=== PATIENT | male | born 1945 | race Caucasian/White ===

== ENCOUNTER → 2019-07-05 | Outpatient (CLI) | payer MEDICARE ==
--- NOTE | 2019-07-09 09:01 | MR ---
EXAMINATION TYPE: MR Prostate wo/w con DATE OF EXAM: 07/05/2019 COMPARISON: None IMAGE QUALITY: Satisfactory. INDICATION: Prostate cancer PSA: Not available Recent Biopsy and Date: 07/11/2018 Pathology Report (If Applicable): Prostate biopsy dated 07/11/2018 demonstrating a single positive cor e biopsy of the left lateral mid prostate gland demonstrating Marlette 3+3 (total 6) involving 1 core (approximately 10% of tissue measuring 1 mm in length). TECHNIQUE: Examination was performed using a 3T MRI without an endorectal coil. Multiparametric imaging was perf ormed with T2 mutliplanar sequences, axial diffusion weighted imaging and dynamic contrast enhanced i maging, utilizing 10 mL intravenous Gadavist gadolinium contrast. FINDINGS: There is no clinically significant cancer identified. PROSTATE VOLUME: 5.6 x 5.4 x 5.8 cm Vol= 91.8 cc Site 1: Assessment Category: 3 Size: 0.5 centimeters Location(s): Mid gland, medial aspect of the posterior lateral segment of the peripheral zone on the left NVB invasion: No Epididymal involvement: No Site 2: Assessment Category: 3 Size: 0.8 x 0.8 x 0.8 centimeters Location(s): Mid gland, lateral aspect of the posterior lateral segment of the peripheral zone on the right NVB invasion: No Epididymal involvement: No Wedge-shaped areas of hypoattenuation on T2-weighted imaging within the posterior medial mid gland on the right and left and posterior lateral right mid gland have no suspicious DWI/ADC characteristics and are typically related to fibrosis or prior prostatitis. Well-circumscribed heterogenous encapsula danish changes of the central zone are typically on the basis of benign prostatic hyperplasia, overall a ppearing moderate. Seminal vesicles appear unremarkable. Numerous sigmoid diverticula are seen. Osseous bone marrow sign al appears within normal limits. No suspicious adenopathy demonstrated within the pelvis. Urinary pooja dder displays reticulation, possibly from incomplete distention or sequela of the urinary bladder out let obstruction. IMPRESSION: PI-RADS 3 (intermediate, the presence of clinically significant cancer is equivocal) of the bilateral mid gland posterior lateral peripheral zones with abnormal foci on the left measuring 5 mm and on th e right measuring 8 mm. The left-sided nodule may correspond to the previously biopsied known prostat e carcinoma however the right nodule has no biopsy-proven malignant correlate on the provided patholo gy report. Directed biopsy of the right lateral peripheral zone should be considered. Highest Assessment Category: 3 False negative rates for MRI range from 5-20% depending on risk profile. Assessment Categories: 1 ? Very low (clinically significant cancer is highly unlikely to be present) 2 ? Low (clinically significant cancer is unlikely to be present) 3 ? Intermediate (the presence of clinically significant cancer is equivocal) 4 ? High (clinically significant cancer is likely to be present) 5 ? Very high (clinically significant cancer is highly likely to be present) Locations: PZ = peripheral zone; TZ = transition zone CZ=central zone; AFS = anterior fibromuscular stroma a=anterior half (i.e. PZa=anterior half of peripheral zone); pm= posterior medial (i.e PZpm) pl = postero-lateral (i.e. PZpl); p = posterior half (i.e. TZp) ; a = anterior half (i.e TZa or P Za) Other: N=no or no; E= equivocal; Y=yes EPE = extraprostatic extension NVB = neurovascular bundle NA = not applicable/not available
== END | disposition home or self-care (01) ==
LOC: RADMRIMAIN 09:02
PROVIDERS: ATTEND Urology
DX: C61 Malignant neoplasm of prostate (principal)
CPT/HCPCS: 72197; A9585

== ENCOUNTER → 2023-11-02 | Outpatient (CLI) | payer MEDICARE ==
--- NOTE | 2023-11-02 11:16 | MR ---
EXAMINATION TYPE: MR Prostate wo/w con DATE OF EXAM: 11/02/2023 10:02 AM COMPARISON: None. CLINICAL INDICATION:Male, 78 years old with history of [id number] PSA. TECHNIQUE: Multi-planar, multi-sequence imaging of the pelvis is performed prior to and following the uncomplicated administration of bolus intravenous gadolinium. CONTRAST: 10 Gadavist Interpretive Criteria: PI-RADS v2.1 SERUM PSA: 6.7 on November 2022. 6.4 on May 2023. SURGICAL PATHOLOGY: No data available. FINDINGS: Prostatic dimensions: 6.5 x 6.7 x 5.7 cm cm. Ellipsoid Volume:129.98 (PSA density=0.05 ng/mL/mL) CENTRAL GLAND (Central and Transition Zones/CZ+TZ): Multiple bilateral, heterogenous appearing hypertrophic stromal nodules, without suspicious lesion. M edian lobe hypertrophy with protrusion into the base of the bladder. (PI-RADS 2) PERIPHERAL ZONE (PZ): Bilateral linear, indistinct wedgelike areas of low ADC, and low T2 signal, No evidence of masslike a bnormality, or localized perfusional hypervascularity, to further suggest a focus of clinically signi ficant prostate cancer. (PI-RADS 2) SEMINAL VESICLES (SV): Symmetric and unremarkable. PERIPROSTATIC TISSUES: Unremarkable. LYMPH NODES: No enlarged pelvic lymph node. REMAINING PELVIS: Bladder wall is within normal limits given distention. No abnormal free or organized intrapelvic fluid collection. No pathologic bowel dilation or mural thickening. Colonic diverticula are present. Bilateral fat containing inguinal hernias. OSSEOUS STRUCTURES: No suspicious osseous abnormality. IMPRESSION: 1. No specific features for high-risk prostate cancer. Maximum PI-RADS score: 2. 2. Substantial BPH, estimated gland volume 129.98 mL.
== END | disposition home or self-care (01) ==
LOC: RADMRIMAIN 08:53
PROVIDERS: ATTEND Urology
DX: C61 Malignant neoplasm of prostate (principal); N40.0 Benign prostatic hyperplasia without lower urinary tract symptoms; R97.20 Elevated prostate specific antigen [PSA]
CPT/HCPCS: 72197; A9585

== ENCOUNTER 2025-02-18 04:11 | Emergency (ER) | payer MEDICARE ==
[2025-02-18 04:22] VITALS: TEMP 97.3
--- NOTE | 2025-02-18 05:05 | ED ---
Male Urogenital HPI - General Source: patient Mode of arrival: ambulatory Limitations: no limitations <Vikki Hernandez - Last Filed: 02/18/25 07:34> <Annalee Pineda - Last Filed: 02/18/25 18:59> - General Chief complaint: Urogenital Stated complaint: Blood in Urine Time Seen by Provider: 02/18/25 04:26 - History of Present Illness Initial comments: 79-year-old male with past medical history significant for BPH and prostate cancer, follows with Dr. Berrios. Patient reports that he had blood in his urine 1 week ago. Does endorse suprapubic abdominal pain and bloating. Does endorse recent travel with lots of walking. Reports he last urinated at 7 PM yesterday. Patient reports he does take a baby aspirin but no blood thinners. Denies any history of kidney stones. Denies any history of heart failure or lower extremity edema. He denies any fevers, chills, nausea, vomiting, diarrhea. (Vikki Hernandez) - Related Data Previous Rx's Medication Instructions Recorded Tamsulosin [Flomax] 0.4 mg PO DAILY 14 Days #14 cap 02/18/25 Allergies Allergy/AdvReac Type Severity Reaction Status Date / Time Penicillins Allergy Swelling Verified 02/18/25 11:40 Review of Systems ROS Other: All systems not noted in ROS Statement are negative. Constitutional: Denies: fever, chills Respiratory: Denies: cough, dyspnea Cardiovascular: Denies: chest pain, palpitations Endocrine: Denies: fatigue Gastrointestinal: Reports: abdominal pain Genitourinary: Reports: hematuria. Denies: urgency, dysuria Musculoskeletal: Reports: back pain Skin: Denies: rash, lesions Neurological: Denies: headache, weakness <Vikki Hernandez - Last Filed: 02/18/25 07:34> ROS Other: All systems not noted in ROS Statement are negative. <Annalee Pineda - Last Filed: 02/18/25 18:59> ROS Statement: Those systems with pertinent positive or pertinent negative responses have been documented in the HPI. Past Medical History Past Medical History: Hyperlipidemia, Hypertension History of Any Multi-Drug Resistant Organisms: None Reported Past Surgical History: Coronary Bypass/CABG, Hernia Repair Past Psychological History: No Psychological Hx Reported Smoking Status: Never smoker Past Alcohol Use History: Occasional Past Drug Use History: None Reported <Vikki Hernandez - Last Filed: 02/18/25 07:34> General Exam Limitations: no limitations General appearance: alert, in no apparent distress Respiratory exam: Present: normal lung sounds bilaterally. Absent: respiratory distress, wheezes Cardiovascular Exam: Present: regular rate, normal rhythm, normal heart sounds GI/Abdominal exam: Present: soft, tenderness (Suprapubic). Absent: guarding, rebound, hernia Back exam: Present: tenderness Neurological exam: Present: alert, oriented X3 Psychiatric exam: Present: normal affect, normal mood Skin exam: Present: warm, dry, intact <Vikki Hernandez - Last Filed: 02/18/25 07:34> Course Vital Signs 02/18/25 02/18/25 02/18/25 04:15 06:46 07:49 Temperature 97.3 F L Pulse Rate 77 72 80 Respiratory 17 18 18 Rate Blood Pressure 180/80 125/85 122/76 O2 Sat by Pulse 99 95 98 Oximetry Medical Decision Making - Lab Data Result diagrams: 02/18/25 05:16 02/18/25 05:16 <Vikki Hernandez - Last Filed: 02/18/25 07:34> - Lab Data Result diagrams: 02/18/25 05:16 02/18/25 05:16 <Annalee Pineda - Last Filed: 02/18/25 18:59> - Medical Decision Making Was pt. sent in by a medical professional or institution (, PA, KICKBOXING INSTRUCTOR, urgent care, hospital, or senior care...) When possible be specific @ -No Did you speak to anyone other than the patient for history (EMS, parent, family, police, friend...)? What history was obtained from this source @ -No Did you review nursing and triage notes (agree or disagree)? Why? @ -I reviewed and agree with nursing and triage notes Were old charts reviewed (outside hosp., previous admission, EMS record, old EKG, old radiological studies, urgent care reports/EKG's, senior care records)? Report findings @ -No old charts were reviewed Differential Diagnosis? @ -Differential Back Pain: Strain, zoster, cauda equina syndrome, epidural abscess, vertebral osteomyelitis, discitis, fracture, subluxation, disc herniation, DJD, spinal stenosis, dissection, AAA, pancreatitis, peptic ulcer disease, pyelonephritis, kidney stone, this is not meant to be an all-inclusive list. EKG interpreted by me (3pts min.). @ -As above X-rays interpreted by me (1pt min.). @ -KUB does not appear to show any residual stones. CT interpreted by me (1pt min.). @ -None done U/S interpreted by me (1pt. min.). @ -None done What testing was considered but not performed or refused? (CT, X-rays, U/S, labs)? Why? @ -None What meds were considered but not given or refused? Why? @ -None Did you discuss the management of the patient with other professionals (professionals i.e. , PA, KICKBOXING INSTRUCTOR, lab, RT, psych nurse, aids social worker, milk receiver tank truck, teacher, protective services officer, director of casework)? Give summary @ -Case was discussed with ED attending physician Dr. Pineda. Case was discussed with on-call urologist Dr. Vernon who agreed patient may follow-up outpatient. Was smoking cessation discussed for >3mins.? @ -No Was critical care preformed (if so, how long)? @ -No Were there social determinants of health that impacted care today? How? (Homelessness, low income, unemployed, alcoholism, drug addiction, transportation, low edu. Level, literacy, decrease access to med. care, intermediate, rehab)? @ -No Was there de-escalation of care discussed even if they declined (Discuss DNR or withdrawal of care, Hospice)? DNR status @ -No What co-morbidities impacted this encounter? (DM, HTN, Smoking, COPD, CAD, Cancer, CVA, ARF, Chemo, Hep., AIDS, mental health diagnosis, sleep apnea, morbid obesity)? @ -None Was patient admitted / discharged? Hospital course, mention meds given and route, prescriptions, significant lab abnormalities, going to OR and other perti nent info. @ -Lab work is significant for BUN 26, creatinine 1.31 suggestive of SONNY and CK of 230. KUB was unremarkable. This was discussed with ED attending physician Dr. iPneda and on-call urologist Dr. Vernon who agreed patient can follow-up with urology on an outpatient basis for some repeat labs. Patient will be discharged home with self-care. Patient to return if symptoms worsen or persist. Undiagnosed new problem with uncertain prognosis? @ -No Drug Therapy requiring intensive monitoring for toxicity (Heparin, Nitro, Insulin, Cardizem)? @ -No Were any procedures done? @ -No Diagnosis/symptom? @ -Hematuria, acute kidney injury Acute, or Chronic, or Acute on Chronic? @ -Acute Uncomplicated (without systemic symptoms) or Complicated (systemic symptoms)? @ -Uncomplicated Side effects of treatment? @ -No Exacerbation, Progression, or Severe Exacerbation? @ -No Poses a threat to life or bodily function? How? (Chest pain, [place], [place], pneumonia, PE, COPD, DKA, ARF, appy, cholecystitis, CVA, Diverticulitis, Homicidal, Suicidal, threat to staff... and all critical care pts) @ -No (Vikki Hernandez) I personally saw the patient and performed the critical portion of the service. I discussed the patient care with the resident physician. I directed management, care planning and final disposition of the patient. This includes, but not limi danish to, review of all lab work, radiological studies, EKG's, consultations, vital signs, and nursing notes. X-Rays interpreted by me (1 pt min.) Personally reviewed XR KUB I see no evidence of obstruction of other acute process. I agree with radiologist interpretation. CT interpreted by me ( 1pt min.) @ [none] U/S interpreted by me (1 pt min.) @ [none] Critical care time of [0] minutes excluding separately billable procedures was spent in conjunction with critical care activities provided by the Resident and Attending simultaneously. I was present during [no procedures] for all critical portions of the procedure and as immediately available to furnish service during the entire procedure. (Annalee Pineda) - Lab Data Lab Results 02/18/25 02/18/25 02/18/25 Range/Units 05:16 05:16 06:46 WBC 7.52 (4.50-10.00) 10*3/uL RBC 4.06 L (4.40-5.60) 10*6/uL Hgb 13.5 (13.0-17.0) g/dL Hct 39.3 L (39.6-50.0) % MCV 96.8 (80.0-97.0) fL MCH 33.3 H (27.0-32.0) pg MCHC 34.4 (32.0-37.0) g/dL Plt Count 160 (140-440) 10*3/uL MPV 10.9 (9.5-12.2) fL Immature Gran % (Auto) 0.3 % Neutrophils % 79.9 % Lymphocytes % 11.8 % Monocytes % 6.3 % Eosinophils % 1.2 % Basophils % 0.5 % Immature Gran # 0.02 (0.00-0.04) 10*3/uL Neutrophils # 6.01 (1.80-7.70) 10*3/uL Lymphocytes # 0.89 L (0.90-5.00) 10*3/uL Monocytes # 0.47 (0.20-1.00) 10*3/uL Eosinophils # 0.09 (0.04-0.35) 10*3/uL Basophils # 0.04 (0.00-0.10) 10*3/uL Sodium 135 L (137-145) mmol/L Potassium 4.3 (3.5-5.1) mmol/L Chloride 104 (98-107) mmol/L Carbon Dioxide 21 L (22-30) mmol/L Anion Gap 10 mmol/L BUN 26 H (9-20) mg/dL Creatinine 1.31 H (0.66-1.25) mg/dL Est GFR (CKD-EPI)AfAm 61 (>60 ml/min/1.73 sqM) Est GFR (CKD-EPI)NonAf 52 (>60 ml/min/1.73 sqM) Glucose 115 H (74-99) mg/dL Calcium 10.0 (8.4-10.2) mg/dL Total Bilirubin 0.5 (0.2-1.3) mg/dL AST 32 (17-59) U/L ALT 29 (4-49) U/L Alkaline Phosphatase 38 (38-126) U/L Creatine Kinase 230 H (55-170) U/L Total Protein 6.9 (6.3-8.2) g/dL Albumin 4.1 (3.5-5.0) g/dL Urine Color Red Urine Appearance Cloudy (Clear) Urine pH 6.0 (5.0-8.0) Ur Specific Bronson 1.010 (1.001-1.035) Urine Protein 1+ H (Negative) Urine Glucose (UA) Negative (Negative) Urine Ketones Negative (Negative) Urine Blood Large H (Negative) Urine Nitrite Negative (Negative) Urine Bilirubin Negative (Negative) Urine Urobilinogen <2.0 (<2.0) mg/dL Ur Leukocyte Esterase Trace H (Negative) Urine RBC >182 H (0-5) /hpf Urine WBC 21 H (0-5) /hpf Disposition Is patient prescribed a controlled substance at d/c from ED?: No Time of Disposition: 06:30 <HernandezVikki rodriguez - Last Filed: 02/18/25 07:34> <Moises Pinedaen - Last Filed: 02/18/25 18:59> Clinical Impression: Hematuria, Acute kidney injury Disposition: HOME SELF-CARE Additional Instructions: Every disease is a spectrum and a small chance still exists that a serious condition could develop, for this reason, please monitor yourself closely for new, changing or worsening symptoms, symptoms that persist beyond 48 hours, any further episodes of vomiting blood, difficulty in breathing, severe abdominal pain, symptoms that did not improve in the next 48 hours, black or bloody stools, fever, inability to tolerate/keep down fluids or your medications, inability to follow up with outpatient providers as instructed and should you experience these symptoms or should you have any further concerns for your wellbeing please return to the ED or call 911 immediately. PLEASE take prescriptions as listed in discharge instructions. PLEASE call your primary care physician as soon as possible to arrange / discuss plan for followup appointment. Appointment in the next 1-3 days is strongly encouraged if possible. Please follow-up with urology outpatient in 1 to 2 days for repeat blood work. PLEASE let us know here before you leave if there is anything further we can do to be of any assistance. Take care and feel Better! Referrals: Umm Madrid MD [Primary Care Provider] - 1-2 days
[2025-02-18 05:26] LABS: Basophils # (A) 0.04 10*3/uL (0.00-0.10); Basophils % (A) 0.5 %; Eosinophils # (A) 0.09 10*3/uL (0.04-0.35); Eosinophils % (A) 1.2 %; HCT 39.3 % (39.6-50.0); HGB 13.5 g/dL (13.0-17.0); Lymphocytes # (A) 0.89 10*3/uL (0.90-5.00); Lymphocytes % (A) 11.8 %; MCH 33.3 pg (27.0-32.0); MCHC 34.4 g/dL (32.0-37.0); MCV 96.8 fL (80.0-97.0); Mean Platelet Volume 10.9 fL (9.5-12.2); Monocytes # (A) 0.47 10*3/uL (0.20-1.00); Monocytes % (A) 6.3 %; Neutrophils # (A) 6.01 10*3/uL (1.80-7.70); Neutrophils % (A) 79.9 %; Platelet Count 160 10*3/uL (140-440); RBC 4.06 10*6/uL (4.40-5.60); RDW 12.6 % (11.5-14.5); WBC 7.52 10*3/uL (4.50-10.00)
[2025-02-18 05:43] LABS: ALT 29 U/L (4-49); AST 32 U/L (17-59); African American GFR (CKD) 61 (>60 ml/min/1.73 sqM); Albumin 4.1 g/dL (3.5-5.0); Alkaline Phosphatase 38 U/L (38-126); Anion Gap 10 mmol/L; Blood Urea Nitrogen 26 mg/dL (9-20); Carbon Dioxide 21 mmol/L (22-30); Chloride 104 mmol/L (98-107); Creatine Kinase 230 U/L (55-170); Glucose 115 mg/dL (74-99); Non-African American GFR(CKD) 52 (>60 ml/min/1.73 sqM); Potassium 4.3 mmol/L (3.5-5.1); Sodium 135 mmol/L (137-145); Total Bilirubin 0.5 mg/dL (0.2-1.3); Total Protein 6.9 g/dL (6.3-8.2)
--- NOTE | 2025-02-18 06:40 | XR ---
KUB. CLINICAL INDICATION: Male, 79 years old with history of hematuria, Abdominal pain. COMPARISON: None. TECHNIQUE: 2 upright views of the abdomen were obtained. FINDINGS: The lung bases are clear. There is no free intraperitoneal air beneath the diaphragm. The bowel gas pattern is nonspecific and there is no evidence of obstruction. There is mild stool wit hin the colon No suspicious abdominal or pelvic calcifications are seen. There is [id number] osteoarthritis of the hips bilaterally, left greater than right.. IMPRESSION: Nonspecific abdomen without evidence of free air or obstruction. [facility], Workstation: [facility], 02/18/2025 6:37 AM
[2025-02-18 06:48] VITALS: RESP 18
[2025-02-18] MEDS: SODIUM CHLORIDE 0.9% 1,000 ML IV ONE (06:50)
[2025-02-18 07:13] LABS: Appearance,Urine Cloudy (Clear); Bilirubin,Urine Negative (Negative); Blood,Urine Large (Negative); Color,Urine Red; Glucose,Urine (UA) Negative (Negative); Ketones,Urine Negative (Negative); Leukocyte Esterase,Urine Trace (Negative); Nitrite,Urine Negative (Negative); Protein,Urine 1+ (Negative); RBC,Urine >182 /hpf (0-5); Urobilinogen,Urine <2.0 mg/dL (<2.0); WBC,Urine 21 /hpf (0-5)
[2025-02-18 07:50] VITALS: BP 122/76; PULSE 80
== END 2025-02-18 07:50 | disposition home or self-care (01) ==
LOC: EC 04:11
DX: N17.9 Acute kidney failure, unspecified (principal); Z88.0 Allergy status to penicillin
CPT/HCPCS: 36415; 51702; 51798; 74018; 80053; 81001; 82550; 85025; 87086; 96360; 99284

== ENCOUNTER 2025-02-18 11:34 | Emergency (ER) | payer MEDICARE ==
[2025-02-18 11:40] VITALS: TEMP 98.1
[2025-02-18 13:19] LABS: Basophils # (A) 0.02 10*3/uL (0.00-0.10); Basophils % (A) 0.2 %; Eosinophils # (A) 0.09 10*3/uL (0.04-0.35); HCT 37.7 % (39.6-50.0); Lymphocytes # (A) 1.14 10*3/uL (0.90-5.00); Lymphocytes % (A) 12.9 %; MCH 33.1 pg (27.0-32.0); MCHC 34.5 g/dL (32.0-37.0); MCV 95.9 fL (80.0-97.0); Monocytes # (A) 0.84 10*3/uL (0.20-1.00); Monocytes % (A) 9.5 %; Neutrophils # (A) 6.76 10*3/uL (1.80-7.70); Neutrophils % (A) 76.2 %; Platelet Count 175 10*3/uL (140-440); RBC 3.93 10*6/uL (4.40-5.60); RDW 12.8 % (11.5-14.5); WBC 8.87 10*3/uL (4.50-10.00)
[2025-02-18 13:26] LABS: Appearance,Urine Cloudy (Clear); Bilirubin,Urine Negative (Negative); Blood,Urine Large (Negative); Color,Urine Red; Glucose,Urine (UA) Negative (Negative); Ketones,Urine Negative (Negative); Leukocyte Esterase,Urine Moderate (Negative); Mucus,Urine Rare /hpf; Nitrite,Urine Negative (Negative); PH, Urine 6.5 (5.0-8.0); Protein,Urine 1+ (Negative); RBC,Urine 151 /hpf (0-5); Specific Gravity,Urine 1.006 (1.001-1.035); Urobilinogen,Urine <2.0 mg/dL (<2.0); WBC,Urine 33 /hpf (0-5)
[2025-02-18] MEDS: SODIUM CHLORIDE 0.9% 1,000 ML IV ONE (13:32)
[2025-02-18 13:33] LABS: ALT 25 U/L (4-49); AST 32 U/L (17-59); African American GFR (CKD) 71 (>60 ml/min/1.73 sqM); Albumin 3.9 g/dL (3.5-5.0); Alkaline Phosphatase 33 U/L (38-126); Anion Gap 8 mmol/L; Blood Urea Nitrogen 20 mg/dL (9-20); Calcium 9.9 mg/dL (8.4-10.2); Carbon Dioxide 24 mmol/L (22-30); Chloride 106 mmol/L (98-107); Creatine Kinase 190 U/L (55-170); Glucose 75 mg/dL (74-99); Non-African American GFR(CKD) 61 (>60 ml/min/1.73 sqM); Potassium 4.1 mmol/L (3.5-5.1); Sodium 138 mmol/L (137-145); Total Bilirubin 0.4 mg/dL (0.2-1.3); Total Protein 6.5 g/dL (6.3-8.2)
--- NOTE | 2025-02-18 14:03 | US ---
EXAMINATION TYPE: US renals and bladder DATE OF EXAM: 02/18/2025 COMPARISON: NONE CLINICAL INDICATION: Male, 79 years old with history of hematuria, urine retention; TECHNIQUE: Grayscale imaging of the bilateral kidneys and urinary bladder: FINDINGS: EXAM MEASUREMENTS: Right Kidney: 9.9x5.9x5.1 cm Left Kidney: 11.7x6.7x5.1 cm limited visualization due to overlying bowel & rib shadow Right Kidney: ?dilated renal pelvis vs trace amount of hydro Left Kidney: ?trace amount of hydro vs dilated renal pelvis Bladder: pt had catheter in, ?thickened irregular wall: 0.7cm ?Enlarged prostate: 6.3x6.2x5.1cm w calcifications seen Bilateral Jets seen: pt has cath IMPRESSION: 1. No solid renal mass, renal calcification or hydronephrosis. 2. Alvarez catheter limits the evaluation of the urinary bladder 3. Marked prostatic hypertrophy [facility], , 02/18/2025 2:00 PM
[2025-02-18 14:25] VITALS: BP 127/76; PULSE 53; RESP 16
--- NOTE | 2025-02-18 14:42 | ED ---
General Adult HPI - General Chief complaint: Abdominal Pain Stated complaint: unable to urinate Time Seen by Provider: 02/18/25 12:25 Source: patient, RN notes reviewed, old records reviewed Mode of arrival: ambulatory Limitations: no limitations - History of Present Illness Initial comments: Patient is a 79-year-old male who presents emergency department over concern for urinary retention. Patient was seen last night for similar complaints. Alvarez catheter was placed and subsequently removed prior to discharge. Unknown why this was done. He went home and once again could not urinate. His symptoms originated a few weeks ago when he returned from a [employer] vacation in which he did ambulate numerous miles. He began having some blood in his urine intermittently. Has followed up with his urologist, Dr. Berrios who did empirically place the patient on antibiotics. Patient last had a normal urination by himself yesterday at approximately 7 PM. Awoke this morning at 4 AM and presented to the emergency department. He was evaluated by the team overnight, Alvarez catheter was placed and for some reason was subsequently removed. Patient was discharged home. On that visit, patient did have slightly elevated creatinine kinase. Otherwise unremarkable other than some hematuria. He returns at this time because he is still not urinated on his own. No new symptoms otherwise other than suprapubic discomfort.Patient also already had a bladder scan which showed over 999 cc of urine in his bladder and Alvarez catheter was placed by nursing staff after contacting myself. This is when I evaluate the patient in the room. - Related Data Previous Rx's Medication Instructions Recorded Tamsulosin [Flomax] 0.4 mg PO DAILY 14 Days #14 cap 02/18/25 Allergies Allergy/AdvReac Type Severity Reaction Status Date / Time Penicillins Allergy Swelling Verified 02/18/25 11:40 Review of Systems ROS Statement: Those systems with pertinent positive or pertinent negative responses have been documented in the HPI. Review of Systems: CONST: Denies fever EYES: Denies blurry vision ENT: Denies nasal congestion C/V: Denies Chest pain RESP: Denies shortness of breath GI: Endorses suprapubic abdominal discomfort : Endorses urinary retention SKIN: Denies rash. MSK: Denies joint pain. NEURO: Denies headache ROS Other: All systems not noted in ROS Statement are negative. Past Medical History Past Medical History: Hyperlipidemia, Hypertension History of Any Multi-Drug Resistant Organisms: None Reported Past Surgical History: Coronary Bypass/CABG, Hernia Repair Past Psychological History: No Psychological Hx Reported Smoking Status: Never smoker Past Alcohol Use History: Occasional Past Drug Use History: None Reported General Exam - General Exam Comments Initial Comments: General: Appears in no acute distress. HEAD: Normal with no signs of head trauma. EYES: EOMI ENT: Hearing grossly intact, normal oropharynx. RESPIRATORY: Clear breath sounds bilaterally. No wheezes, rales, or rhonchi. C/V: Regular rate and rhythm. S1 and S2 auscultated, no edema, peripheral pulses 2+ and intact throughout ABD: Abd is soft, nontender, nondistended. No tenderness to palpation. Alvarez catheter is in place and is draining blood-tinged urine. EXT: No obvious deformity. SKIN: No rashes or lesions observed on exposed skin. NEURO: Alert and oriented x 4. Limitations: no limitations Course Vital Signs 02/18/25 02/18/25 11:37 14:24 Temperature 98.1 F Pulse Rate 87 53 L Respiratory 18 16 Rate Blood Pressure 146/71 127/76 O2 Sat by Pulse 97 97 Oximetry Medical Decision Making - Medical Decision Making Was pt. sent in by a medical professional or institution (, PA, ENGRAVER [employer]PER[employer], urgent care, hospital, or fpc...) When possible be specific @ -No Did you speak to anyone other than the patient for history (EMS, parent, family, police, friend...)? What history was obtained from this source @ -No Did you review nursing and triage notes (agree or disagree)? Why? @ -I reviewed and agree with nursing and triage notes Were old charts reviewed (outside hosp., previous admission, EMS record, old EKG, old radiological studies, urgent care reports/EKG's, fpc records)? Report findings @ -Reviewed chart from visit from earlier today which showed Alvarez catheter was placed and then removed. Workup remarkable for having a slightly elevated creatinine kinase and hematuria in addition to the urinary retention. Differential Diagnosis (chest pain, altered mental status, abdominal pain women, abdominal pain men, vaginal bleeding, weakness, fever, dyspnea, syncope, headache, dizziness, GI bleed, back pain, seizure, CVA, palpatations, mental health, musculoskeletal)? @ -BPH, UTI, urinary mass. This list is not all inclusive. EKG interpreted by me (3pts min.). @ -None done X-rays interpreted by me (1pt min.). @ -None done CT interpreted by me (1pt min.). @ -None done U/S interpreted by me (1pt. min.). @ -Ultrasound of the renal and bladder system revealed no obvious mass or hydronephrosis. Patient does have prostatic hypertrophy. What testing was considered but not performed or refused? (CT, X-rays, U/S, labs)? Why? @ -None What meds were considered but not given or refused? Why? @ -None Did you discuss the management of the patient with other professionals (professionals i.e. Dr., PA, ENGRAVER [employer], lab, RT, psych nurse, social media specialist, mold filler plastic dolls, teacher, network security officer, correctional casework specialist)? Give summary @ -No Was smoking cessation discussed for >3mins.? @ -No Was critical care preformed (if so, how long)? @ -No Were there social determinants of health that impacted care today? How? (Homelessness, low income, unemployed, alcoholism, drug addiction, transportation, low edu. Level, literacy, decrease access to med. care, residential, rehab)? @ -No Was there de-escalation of care discussed even if they declined (Discuss DNR or withdrawal of care, Hospice)? DNR status @ -No What co-morbidities impacted this encounter? (DM, HTN, Smoking, COPD, CAD, Cancer, CVA, ARF, Chemo, Hep., AIDS, mental health diagnosis, sleep apnea, morbid obesity)? @ -None Was patient admitted / discharged? Hospital course, mention meds given and route, prescriptions, significant lab abnormalities, going to OR and other pertinent info. @ -Patient presents for urinary retention. Alvarez catheter placed upon arrival after clearance with myself by nursing staff after his bladder scan showed over 999 cc of urine in it. Drained over 1000 cc of urine from the bladder. Was blood-tinged urine. Vitals within acceptable limits. Discussed with the patient we will repeat some basic labs as well as obtain ultrasound. They were in agreement this plan. Labs show the hematuria. Creatinine kinase which was elevated earlier to 230 is now improved to 190. Patient did receive 1 L fluid bolus on the current visit. Ultrasound revealed the BPH but no other obvious findings. Reevaluation, patient is feeling improved following the Alvarez catheter placement. He will be discharged home with a leg bag and instruction to follow- up with his urologist within the next 1 to 3 days. He was in agreement this plan. Strict return precautions were discussed. He was started on Bactrim recently by his urologist and I recommended he continue this until following up with urology.Patient follows up with Dr. Berrios in the office and I will give him contact information for him. I instructed the patient to follow up with their PCP in the next 1-3 days. I explained that the patient should return to the emergency department if they experience any worsening symptoms. Strict return precautions were discussed with the patient. The patient expressed understanding of these instructions. I answered all questions that the patient had. The patient was discharged home in good condition with their prescriptions and follow up information. Undiagnosed new problem with uncertain prognosis? @ -No Drug Therapy requiring intensive monitoring for toxicity (Heparin, Nitro, Insulin, Cardizem)? @ -No Were any procedures done? @ -No Diagnosis/symptom? @ -Urinary retention with Alvarez catheter placement, BPH, hematuria Acute, or Chronic, or Acute on Chronic? @ -Acute Uncomplicated (without systemic symptoms) or Complicated (systemic symptoms)? @ -Uncomplicated Side effects of treatment? @ -No Exacerbation, Progression, or Severe Exacerbation? @ -No Poses a threat to life or bodily function? How? (Chest pain, USA, SD, pneumonia, PE, COPD, DKA, ARF, appy, cholecystitis, CVA, Diverticulitis, Homicidal, Suicidal, threat to staff... and all critical care pts) @ -Unlikely at this time - Lab Data Result diagrams: 02/18/25 13:04 02/18/25 13:04 Lab Results 02/18/25 02/18/25 02/18/25 Range/Units 13:04 13:04 13:04 WBC 8.87 (4.50-10.00) 10*3/uL RBC 3.93 L (4.40-5.60) 10*6/uL Hgb 13.0 (13.0-17.0) g/dL Hct 37.7 L (39.6-50.0) % MCV 95.9 (80.0-97.0) fL MCH 33.1 H (27.0-32.0) pg MCHC 34.5 (32.0-37.0) g/dL Plt Count 175 (140-440) 10*3/uL MPV 11.0 (9.5-12.2) fL Immature Gran % (Auto) 0.2 % Neutrophils % 76.2 % Lymphocytes % 12.9 % Monocytes % 9.5 % Eosinophils % 1.0 % Basophils % 0.2 % Immature Gran # 0.02 (0.00-0.04) 10*3/uL Neutrophils # 6.76 (1.80-7.70) 10*3/uL Lymphocytes # 1.14 (0.90-5.00) 10*3/uL Monocytes # 0.84 (0.20-1.00) 10*3/uL Eosinophils # 0.09 (0.04-0.35) 10*3/uL Basophils # 0.02 (0.00-0.10) 10*3/uL Sodium 138 (137-145) mmol/L Potassium 4.1 (3.5-5.1) mmol/L Chloride 106 (98-107) mmol/L Carbon Dioxide 24 (22-30) mmol/L Anion Gap 8 mmol/L BUN 20 (9-20) mg/dL Creatinine 1.15 (0.66-1.25) mg/dL Est GFR (CKD-EPI)AfAm 71 (>60 ml/min/1.73 sqM) Est GFR (CKD-EPI)NonAf 61 (>60 ml/min/1.73 sqM) Glucose 75 (74-99) mg/dL Calcium 9.9 (8.4-10.2) mg/dL Total Bilirubin 0.4 (0.2-1.3) mg/dL AST 32 (17-59) U/L ALT 25 (4-49) U/L Alkaline Phosphatase 33 L (38-126) U/L Creatine Kinase 190 H (55-170) U/L Total Protein 6.5 (6.3-8.2) g/dL Albumin 3.9 (3.5-5.0) g/dL Urine Color Red Urine Appearance Cloudy (Clear) Urine pH 6.5 (5.0-8.0) Ur Specific Reva 1.006 (1.001-1.035) Urine Protein 1+ H (Negative) Urine Glucose (UA) Negative (Negative) Urine Ketones Negative (Negative) Urine Blood Large H (Negative) Urine Nitrite Negative (Negative) Urine Bilirubin Negative (Negative) Urine Urobilinogen <2.0 (<2.0) mg/dL Ur Leukocyte Esterase Moderate H (Negative) Urine RBC 151 H (0-5) /hpf Urine WBC 33 H (0-5) /hpf Urine Mucus Rare H (None) /hpf Disposition Clinical Impression: Urinary retention, Alvarez catheter in place, Hematuria, Prostate hypertrophy Disposition: HOME SELF-CARE Condition: Good Instructions (If sedation given, give patient instructions): Urinary Retention in Men (ED), Enlarged Prostate (BPH) (ED), Alvarez Catheter Placement and Care (ED) Prescriptions: Tamsulosin [Flomax] 0.4 mg PO DAILY 14 Days #14 cap Is patient prescribed a controlled substance at d/c from ED?: No Referrals: Umm Madrid MD [Primary Care Provider] - 1-2 days Vladislav Berrios MD [STAFF PHYSICIAN] - 1-2 days Time of Disposition: 14:18
[2025-02-18] MEDS: TAMSULOSIN 0.4 MG CAP.ER.24H PO STA (14:50)
== END 2025-02-18 15:10 | disposition home or self-care (01) ==
LOC: EC 11:34
DX: Z46.6 Encounter for fitting and adjustment of urinary device (principal); N40.1 Benign prostatic hyperplasia with lower urinary tract symptoms; R33.9 Retention of urine, unspecified; Z88.0 Allergy status to penicillin
CPT/HCPCS: 36415; 51702; 51798; 76770; 80053; 81001; 82550; 85025; 96360; 96361; 99284

== ENCOUNTER → 2025-02-21 | Outpatient (CLI) | payer MEDICARE ==
[2025-02-21 14:36] LABS: African American GFR (CKD) >90 (>60 ml/min/1.73 sqM); Blood Urea Nitrogen 26 mg/dL (9-20); Non-African American GFR(CKD) 82 (>60 ml/min/1.73 sqM)
--- NOTE | 2025-02-21 18:55 | CT ---
EXAMINATION TYPE: CT urogram wo/w con DATE OF EXAM: 02/21/2025 4:42 PM COMPARISON: Ultrasound 02/18/2025 CLINICAL INDICATION: Male, 79 years old with history of R31.0 GROSS HEMATURIA; PHH, Gross hematuria. TECHNIQUE: Urogram with imaging of the abdomen and pelvis. Coronal and sagittal reformats were performed. 2D and 3D reconstructions are performed to assist visualization of the urinary tract on a separate workstat ion. Contrast used:100 ml mL of Isovue 370 with IV Contrast, Oral contrast used: None. CT DLP: 3903.3 mGycm, Automated exposure control for dose reduction was used. FINDINGS: LOWER CHEST: Moderate to severe coronary artery atherosclerosis. Aortic valve calcification is presen t. GENITOURINARY: RIGHT KIDNEY AND URETER: No calculi. No hydronephrosis or hydroureter. Peripelvic renal cysts. No kody al mass or other lesions. No urothelial lesions: no filling defect, dilation, stricture or wall thick ening. LEFT KIDNEY AND URETER: No calculi. Peripelvic renal cysts. No hydronephrosis or hydroureter. No brissa l mass or other lesions. No urothelial lesions: no filling defect, dilation, stricture or wall thicke charanjit. URINARY BLADDER: Alvarez catheter in place. Suboptimally distended. Trabeculated bladder hernandez impressi on visualized on delayed imaging. REPRODUCTIVE: Prostate is enlarged in size measuring 6.7 cm in transverse dimension. ABDOMEN LIVER: Unremarkable GALLBLADDER AND BILE DUCTS: Unremarkable. PANCREAS: Unremarkable. SPLEEN: Unremarkable. ADRENAL GLANDS: Unremarkable. STOMACH AND BOWEL: . No evidence of bowel obstruction. Scattered colonic diverticula. PERITONEUM: No evidence of pneumoperitoneum, free fluid, or adenopathy. VASCULATURE: Mild atherosclerotic calcifications are present throughout the abdominal aorta and its b ranches. No evidence of aortic aneurysm. MUSCULOSKELETAL: No acute osseous abnormalities. Mild disc degeneration changes are present throughou t the thoracolumbar spine. LYMPH NODES: No gross evidence for lymphadenopathy. SOFT TISSUE/ABDOMINAL WALL: Tiny fat-containing umbilical hernia. Right inguinal surgical changes. No persistent inguinal hernia identified. IMPRESSION: 1. No evidence of urolithiasis or renal/urothelial neoplasm. 2. Prostatomegaly directly bladder hernandez and Alvarez catheter in place. Correlate with serum PSA. Corre late for chronic bladder outlet obstruction. Correlate for traumatic Alvarez catheter placement. 3. Bilateral peripelvic renal cysts. Follow-up recommended. 4. Colonic diverticulosis. [facility], , 02/21/2025 6:52 PM
== END | disposition home or self-care (01) ==
LOC: RADCTMAIN 13:36
PROVIDERS: ATTEND Urology
DX: N40.0 Benign prostatic hyperplasia without lower urinary tract symptoms (principal); N28.1 Cyst of kidney, acquired; K57.30 Diverticulosis of large intestine without perforation or abscess without bleeding; R31.0 Gross hematuria; Z96.0 Presence of urogenital implants
CPT/HCPCS: 82565; 84520; 74178; 36415; 74400; Q9967